=== PATIENT | female | born 1960 | race Caucasian/White ===

== ENCOUNTER 2022-06-06 12:26 | Observation (INO) | payer OTHER ==
[2022-06-06 12:47] VITALS: BMI 35.4
[2022-06-06] MEDS ORDERED: KETOROLAC TROMETHAMINE 30 MG/1 ML VIAL IM ONE (13:08)
[2022-06-06] MEDS ORDERED: KETOROLAC TROMETHAMINE 30 MG/1 ML VIAL ONE (13:13)
[2022-06-06] MEDS ORDERED: ACETAMINOPHEN 325 MG TABLET (FP) PO ONE (13:21)
[2022-06-06] MEDS ORDERED: ACETAMINOPHEN 500 MG TABLET (FP) ONE (13:28)
[2022-06-06] MEDS ORDERED: SODIUM CHLORIDE 500 ML IV STA (17:56)
[2022-06-06 17:59] LABS: BASO % 1.1 % (0-2.0); EOS % 2.8 % (0-4.5); HEMATOCRIT 36.4 % (32.4-45.2); HEMOGLOBIN 12.5 GM/dL (10.7-15.3); LYMPH % 29.9 % (8-40); MCH 29.7 pg (25.7-33.7); MCHC 34.5 g/dl (32.0-36.0); MEAN CELL VOLUME 86.2 fl (80-96); MEAN PLT VOLUME 7.7 fl (7.5-11.1); MONO % 9.3 % (3.8-10.2); NEUT % 56.9 % (42.8-82.8); PLATELET COUNT 477 10^3/uL (134-434); RBC 4.22 M/mm3 (3.60-5.2); RDW 14.4 % (11.6-15.6); WHITE BLOOD COUNT 9.6 K/mm3 (4.0-10.0)
[2022-06-06 18:00] LABS: CHLORIDE 98 mmol/L (98-107); SODIUM 134 mmol/L (136-145)
[2022-06-06 18:01] LABS: CALCIUM 10.2 mg/dL (8.5-10.1); CO2 27 mmol/L (21-32); GLUCOSE,RANDOM 123 mg/dL (74-106)
[2022-06-06 18:03] LABS: BLOOD UREA NITROGEN 19.2 mg/dL (7-18)
[2022-06-06 18:06] LABS: ANION GAP 9 MMOL/L (8-16)
[2022-06-06] MEDS ORDERED: POTASSIUM CHLORIDE TABS 20 MEQ TABLET.ER (FP) PO ONE ×2 (18:13→18:27)
[2022-06-06] MEDS ORDERED: KCL 10 MEQ IVPB 10 MEQ/100 ML INFUS.BAG IVPB ONE (18:28)
[2022-06-06] MEDS: ENOXAPARIN NA (PORCINE) 40 MG/0.4 ML DISP.SYRIN SQ SCH (18:55)
[2022-06-06] MEDS: KCL 10 MEQ IVPB 10 MEQ/100 ML INFUS.BAG IVPB SCH ×3 (18:56→22:27)
[2022-06-07] MEDS: ACETAMINOPHEN 1000 MG/100 ML BAG IVPB PRN ×2 (05:18→10:53)
[2022-06-07 08:04] LABS: HEMOGLOBIN 11.5 GM/dL (10.7-15.3); MCH 30.1 pg (25.7-33.7); MCHC 34.8 g/dl (32.0-36.0); MEAN CELL VOLUME 86.3 fl (80-96); MEAN PLT VOLUME 8.5 fl (7.5-11.1); PLATELET COUNT 384 10^3/uL (134-434); RBC 3.82 M/mm3 (3.60-5.2); RDW 14.3 % (11.6-15.6); WHITE BLOOD COUNT 7.4 K/mm3 (4.0-10.0)
[2022-06-07 08:19] LABS: ALBUMIN 3.4 g/dl (3.4-5.0); BLOOD UREA NITROGEN 23.4 mg/dL (7-18); CALCIUM 9.1 mg/dL (8.5-10.1)
[2022-06-07 08:20] LABS: MAGNESIUM 2.5 mg/dL (1.8-2.4); PHOSPHOROUS 3.4 mg/dL (2.5-4.9)
[2022-06-07 08:22] LABS: BILIRUBIN,TOTAL 0.6 mg/dL (0.2-1); CREATININE 0.8 mg/dL (0.55-1.3); TOT PROT 7.6 g/dl (6.4-8.2)
[2022-06-07] MEDS ORDERED: POTASSIUM CHLORIDE ORAL LIQUID 20 MEQ/15 ML PO ONE (10:45)
[2022-06-07] MEDS: ENOXAPARIN NA (PORCINE) 40 MG/0.4 ML DISP.SYRIN SQ SCH (10:53)
[2022-06-07] MEDS: KCL 10 MEQ IVPB 10 MEQ/100 ML INFUS.BAG IVPB SCH ×2 (12:43→14:18)
[2022-06-07] MEDS ORDERED: oxyCODONE HCL 5 MG TABLET PO PRN (14:24)
[2022-06-07] MEDS ORDERED: DOCUSATE SODIUM 100 MG CAPSULE (FP) PO PRN (14:24)
[2022-06-07] MEDS ORDERED: LEVOTHYROXINE NA 100 MCG TABLET (FP) PO ONE (15:45)
[2022-06-07 15:55] LABS: BLOOD UREA NITROGEN 23.1 mg/dL (7-18)
[2022-06-07 15:58] LABS: CREATININE 0.9 mg/dL (0.55-1.3)
[2022-06-07] MEDS: GABAPENTIN 100 MG CAPSULE PO SCH (22:00)
[2022-06-07] MEDS: GEMFIBROZIL 600 MG TABLET (FP) PO SCH (22:00)
[2022-06-08] MEDS: LEVOTHYROXINE NA 100 MCG TABLET (FP) PO SCH (08:37)
[2022-06-08] MEDS: GABAPENTIN 100 MG CAPSULE PO SCH ×3 (08:37→23:08)
[2022-06-08] MEDS: ENOXAPARIN NA (PORCINE) 40 MG/0.4 ML DISP.SYRIN SQ SCH (09:47)
[2022-06-08] MEDS: GEMFIBROZIL 600 MG TABLET (FP) PO SCH ×2 (09:47→23:08)
[2022-06-08] MEDS: POLYETHYLENE GLYCOL (HEALTHYLAX) 3350 17 GM PACKET PO SCH (09:48)
[2022-06-08 09:52] LABS: HEMATOCRIT 33.7 % (32.4-45.2); HEMOGLOBIN 11.4 GM/dL (10.7-15.3); MCH 29.8 pg (25.7-33.7); MCHC 33.9 g/dl (32.0-36.0); MEAN CELL VOLUME 87.8 fl (80-96); MEAN PLT VOLUME 9.1 fl (7.5-11.1); RBC 3.84 M/mm3 (3.60-5.2); RDW 14.3 % (11.6-15.6)
[2022-06-08 09:54] LABS: WHITE BLOOD COUNT 10.2 K/mm3 (4.0-10.0)
[2022-06-08 10:09] LABS: ALBUMIN 3.4 g/dl (3.4-5.0); BLOOD UREA NITROGEN 18.3 mg/dL (7-18); MAGNESIUM 2.4 mg/dL (1.8-2.4)
[2022-06-08 10:13] LABS: CREATININE 0.7 mg/dL (0.55-1.3)
[2022-06-08 10:14] LABS: BILIRUBIN,TOTAL 0.5 mg/dL (0.2-1); TOT PROT 7.6 g/dl (6.4-8.2)
[2022-06-08 10:16] LABS: PHOSPHOROUS 2.8 mg/dL (2.5-4.9)
[2022-06-08 10:46] LABS: ANISOCYTOSIS 0; HELMET CELLS 0; HOWELL-JOLLY BODIES 0; MACROCYTOSIS 0; OVALOCYTE 0; ROULEAU 0; SICKELED CELLS 0; TARGET CELLS 0; TEAR DROP CELLS 0; TOXIC GRANULATION 0
[2022-06-08 10:56] LABS: PLATELET COUNT 397 10^3/uL (134-434)
[2022-06-08] MEDS ORDERED: GLIMEPIRIDE 2 MG TABLET PO SCH ×2 (11:30→12:05)
[2022-06-08] MEDS: GLIMEPIRIDE 2 MG TABLET PO SCH (13:06)
[2022-06-08] MEDS: LISINOPRIL 5 MG TABLET PO SCH (13:06)
[2022-06-09] MEDS: GABAPENTIN 100 MG CAPSULE PO SCH ×3 (05:56→22:28)
[2022-06-09] MEDS: LEVOTHYROXINE NA 100 MCG TABLET (FP) PO SCH (06:00)
[2022-06-09] MEDS: GLIMEPIRIDE 2 MG TABLET PO SCH (06:08)
[2022-06-09] MEDS: LISINOPRIL 5 MG TABLET PO SCH (09:50)
[2022-06-09] MEDS: ENOXAPARIN NA (PORCINE) 40 MG/0.4 ML DISP.SYRIN SQ SCH (09:50)
[2022-06-09] MEDS: POLYETHYLENE GLYCOL (HEALTHYLAX) 3350 17 GM PACKET PO SCH (09:50)
[2022-06-09] MEDS: GEMFIBROZIL 600 MG TABLET (FP) PO SCH ×2 (09:50→22:28)
[2022-06-09] MEDS ORDERED: TOPIRAMATE 100 MG TABLET PO SCH (22:00)
[2022-06-10] MEDS: GABAPENTIN 100 MG CAPSULE PO SCH (06:28)
[2022-06-10] MEDS: GLIMEPIRIDE 2 MG TABLET PO SCH (06:29)
[2022-06-10] MEDS: LEVOTHYROXINE NA 100 MCG TABLET (FP) PO SCH (06:29)
[2022-06-10 08:47] LABS: HEMATOCRIT 32.4 % (32.4-45.2); HEMOGLOBIN 11.2 GM/dL (10.7-15.3); MCH 30.1 pg (25.7-33.7); MCHC 34.7 g/dl (32.0-36.0); MEAN CELL VOLUME 86.9 fl (80-96); MEAN PLT VOLUME 8.8 fl (7.5-11.1); PLATELET COUNT 388 10^3/uL (134-434); RBC 3.73 M/mm3 (3.60-5.2); RDW 14.4 % (11.6-15.6)
[2022-06-10 09:10] LABS: CALCIUM 8.8 mg/dL (8.5-10.1)
[2022-06-10 09:11] LABS: BLOOD UREA NITROGEN 17.5 mg/dL (7-18); MAGNESIUM 2.3 mg/dL (1.8-2.4)
[2022-06-10 09:14] LABS: CREATININE 0.7 mg/dL (0.55-1.3); PHOSPHOROUS 3.8 mg/dL (2.5-4.9)
[2022-06-10] MEDS: POLYETHYLENE GLYCOL (HEALTHYLAX) 3350 17 GM PACKET PO SCH (09:18)
[2022-06-10] MEDS: GEMFIBROZIL 600 MG TABLET (FP) PO SCH (09:19)
[2022-06-10] MEDS: ENOXAPARIN NA (PORCINE) 40 MG/0.4 ML DISP.SYRIN SQ SCH (09:19)
[2022-06-10] MEDS: LISINOPRIL 5 MG TABLET PO SCH (09:19)
[2022-06-10 09:30] VITALS: TEMP 98.2
[2022-06-10 10:45] VITALS: RESP 18
[2022-06-10 10:48] VITALS: BP 118/75; PULSE 81
== END 2022-06-10 13:27 | disposition home or self-care (01) ==
LOC: JER 12:26 → UNDOADMOB 16:24 → INTOOBSV 16:24 → JERBED 16:24 → J4W 20:35 → JERBED 20:35 → J4W 20:35
PROVIDERS: ADMIT Internal Medicine; ATTEND Internal Medicine
PROC: 3E033NZ Introduction of Analgesics, Hypnotics, Sedatives into Peripheral Vein, Percutaneous Approach (ICD-10-PCS; principal; 2022-06-06)
PROC: 3E023GC Introduction of Other Therapeutic Substance into Muscle, Percutaneous Approach (ICD-10-PCS; 2022-06-06)
DX: S82.143A Displaced bicondylar fracture of unspecified tibia, initial encounter for closed fracture (principal); W01.0XXA Fall on same level from slipping, tripping and stumbling without subsequent striking against object, initial encounter; Y93.89 Activity, other specified; Y92.89 Other specified places as the place of occurrence of the external cause; E11.9 Type 2 diabetes mellitus without complications; I10 Essential (primary) hypertension; E78.5 Hyperlipidemia, unspecified; Z96.651 Presence of right artificial knee joint; R56.9 Unspecified convulsions; E03.9 Hypothyroidism, unspecified; R26.2 Difficulty in walking, not elsewhere classified
CPT/HCPCS: 0241U-QW; 36415; 73562-TC-RT-FY; 73590-TC-RT-FY; 73700-TC-RT; 80048; 80053; 82962; 83036; 83735; 84100; 85025; 85027; 93005; 93010; 93971-TC; 96372; 96374; 97116-GP; 97161-GP; 99285-25; G0378